=== PATIENT | female | born 1935 | race Caucasian/White ===

== ENCOUNTER 2021-03-20 15:20 | Inpatient (IN) | payer MEDICARE, OTHER ==
[~2021-03-20] VITALS: Ht 165.1 cm; Wt 54.7 kg
[~2021-03-20 15:20] MED LIST: MACROBID100 MG PO; PHENERGAN25 M1 PO
[2021-03-20 18:03] LABS: BASOPHIL 0.2 % (0-2); EOSINOPHIL 0.4 % (0-7); HCT 34.2 % (37.0-47.0); HGB 10.9 g/dl (12.5-16.0); LYMPHOCYTE 32.7 % (15-48); MCH 31.4 pg (25.0-31.0); MCHC 31.9 g/dL (32.0-36.0); MCV 98.6 fL (78.0-100.0); MONOCYTE 15.5 % (0-12); MPV 9.8 fL (6.0-9.5); NEUTROPHIL 50.1 % (41-80); NRBC 0; PLT 195 K/uL (150-400); RBC 3.47 M/uL (4.20-5.40); RDW 13.6 % (11.5-14.0); WBC 5.6 K/uL (4.0-10.5)
[2021-03-20 18:12] LABS: ALBUMIN 3.7 g/dL (3.4-5.0); BILIRUBIN - TOTAL 0.3 mg/dL (0.2-1.0); C-REACTIVE PROTEIN 1.8 mg/dL (<=0.90); GLOBULIN (CALCULATION) 4.6 g/dL; POTASSIUM 3.8 mmol/L (3.5-5.1); TOTAL PROTEIN 8.3 g/dL (6.4-8.2)
[2021-03-20 18:18] LABS: LACTIC ACID 1.2 mmol/L (0.4-1.9)
[2021-03-21 06:15] LABS: BASOPHIL 0.2 % (0-2); HCT 31.2 % (37.0-47.0); HGB 9.9 g/dl (12.5-16.0); LYMPHOCYTE 31.3 % (15-48); MCH 31.3 pg (25.0-31.0); MCHC 31.7 g/dL (32.0-36.0); MCV 98.7 fL (78.0-100.0); MONOCYTE 18.2 % (0-12); MPV 9.2 fL (6.0-9.5); NEUTROPHIL 48.8 % (41-80); NRBC 0; PLT 147 K/uL (150-400); RBC 3.16 M/uL (4.20-5.40); RDW 13.5 % (11.5-14.0); WBC 4.2 K/uL (4.0-10.5)
[2021-03-21 06:36] LABS: BILIRUBIN - TOTAL 0.3 mg/dL (0.2-1.0); BUN/CREAT RATIO (CALC) 19.2 RATIO; CREATININE 1.04 mg/dL (0.51-0.95); GLOBULIN (CALCULATION) 3.9 g/dL; POTASSIUM 3.9 mmol/L (3.5-5.1); TOTAL PROTEIN 6.9 g/dL (6.4-8.2)
[2021-03-21 13:28] LABS: IRON % SATURATION 15.3 %SAT (20-50)
[2021-03-21 13:55] LABS: FOLIC ACID (SERUM) 19.8 ng/mL (8.6-58.9)
[2021-03-22 06:23] LABS: BASOPHIL 0.2 % (0-2); EOSINOPHIL 0.7 % (0-7); HCT 30.7 % (37.0-47.0); HGB 9.9 g/dl (12.5-16.0); LYMPHOCYTE 38.8 % (15-48); MCH 31.3 pg (25.0-31.0); MCHC 32.2 g/dL (32.0-36.0); MCV 97.2 fL (78.0-100.0); MONOCYTE 17.7 % (0-12); MPV 9.9 fL (6.0-9.5); NEUTROPHIL 42.1 % (41-80); NRBC 0; PLT 161 K/uL (150-400); RBC 3.16 M/uL (4.20-5.40); RDW 13.3 % (11.5-14.0); WBC 4.2 K/uL (4.0-10.5)
[2021-03-22 06:48] LABS: BUN/CREAT RATIO (CALC) 17.9 RATIO; CREATININE 0.95 mg/dL (0.51-0.95); POTASSIUM 4.6 mmol/L (3.5-5.1)
--- NOTE | 2021-03-22 10:13 | NUR ---
03/22/21 is recommending 24 hour supervision due to cogntive deficits. These recommendations were relayed to Demetria Nava, Daughter, (Note: Howie Condon, daughter, , could not be reached by telephone). Ms. Nava reports a grandson currently stays in the home 3 nights per week. She reports the family to be able to provide 24 hour care. Today, [place] Field Service Consultant requested for this social insurance adviser to call Ms. Condon. - Ms. Condon was reached by telephone. Ms. Condon states that they are not able to provide 24 hour care. Options of Assisted Living, sitter services, NH placement were discussed. Ms. Condon is interested in NH placement in [facility] or [facility].
--- NOTE | 2021-03-22 14:17 | NUR ---
S/W [facility] REGARDING HOME MEDICATION LIST AND LAST OFFICE NOTE. SKETCH ARTIST STATED THAT THEY SWITCHED OVER TO A NEW COMPUTER SYSTEM BUT WILL TRY TO ACCESS OLD SYSTEM TO GET INFORMATION AND WILL FAX TO [phone][address] DR CARVAJAL NOTIFIED
--- NOTE | 2021-03-22 15:01 | NUR ---
03/22/21 Family was educated to the guardianship application process.
--- NOTE | 2021-03-22 16:59 | NUR ---
03/22/21 [facility] has accept patient pending insurance.
--- NOTE | 2021-03-22 17:38 | NUR ---
1730 MIDLINE ORDERED FOR IV VANCOMYCIN. PROCEDURE EXPLAINED TO PT, PT UNDERSTAND SOME OF THE EXPLANATION.PT PREPPED AND DRAPED IN STERILE FASHION. THE PT'S LEFT UPPER ARM BAISILIC VEIN WAS VISUALIZED USING THE SITE RITE 6 US MACHINE. THE AREA WAS NUMBED WITH 1% LIDOCAINE. A 21 GAUGE GUIDE NEEDLE WAS USED. GOOD BLOOD RETURN WAS NOTED. THE GUIDE WIRE THREADED EASILY. THE NEEDLE WAS REMOVED AND THE MIDLINE CATHETER WAS PLACED OVER THE WIRE.THE WIRE AND SHEATH WERE REMOVED. GOOD BLOOD RETURN WAS NOTED. A CONNECTOR WAS FLUSHED AND PLACED OVER THE END OF THE CATHETER. A STAT LOCK WAS PLACED ON THE CATHETER AND A BIOPATCH WAS PLACED ON TOP OF THE INSERTION SITE. A STERILE TEGADERM WAS PLACED OVER THE MIDLINE CATHETER. GOOD FOR 29 DAYS. THIS IS NOT A CENTRAL LINE. REPORT WAS GIVEN TO VINAY OLSEN ON MED/SURG. THE PATIENT'S BED WAS RETURNED TO THE LOWEST POSITION, SR X 3 WERE UP. THE BED ALARM WAS ON, CALL LIGHT WITHIN REACH. PT TOLERATED THE PROCEDURE WELL.
--- NOTE | 2021-03-24 16:34 | NUR ---
03/24/21 [facility] has accepted Ms. Smiley for admission on 03/25/21. Her daughter, Howie Condon, , will provide transportation. Please call report to: [phone] option #1 and ask for Melissa. Fax DS to: [phone]. Report given to MS VINAY Jennings and Dr. Garcia.
--- NOTE | 2021-03-25 11:01 | NUR ---
DR BATISTA AT BEDSIDE TO PLACE PESSARY, PATIENT REFUSED. DR CARVAJAL MADE AWARE, PATIENT WILL HAVE TO FOLLOW UP OUTPATIENT TO GET PESSARY PLACED
--- NOTE | 2021-03-25 13:01 | NUR ---
03/25/21 Ms. Howie Condon, daughter, , requested for her mother to be transported to [place] via another route than her driving her mother. Ms. Condon was informed that patient does not meet criteria for EMS. The ABN was explained.
[2021-03-25] MEDS ORDERED: BACITRACIN1 EACH TOP (13:19)
[2021-03-25] MEDS ORDERED: VITAMIN B-121000 MC1 PO (13:19)
[2021-03-25] MEDS ORDERED: POLY-IRON150 MG PO (13:19)
[2021-03-25] MEDS ORDERED: ACETAMINOPHEN325 MG PO (13:19)
[2021-03-25] MEDS ORDERED: LACTOBACILLUS1 EACH PO (13:19)
[2021-03-25] MEDS ORDERED: HEPARIN 3010 UNIT/1 IV (13:19)
--- NOTE | 2021-03-25 17:34 | NUR ---
1500 PATIENT'S DAUGHTER, MEENAKSHI TORRES, WILL LIKE TO BE CONSULTED ON ALL DECISIONS REGARDING PATIENTS CARE.
--- NOTE | 2021-03-25 17:54 | NUR ---
1530 S/W PATIENTS DAUGHTER, ASHIA, VIA TELEPHONE REGADING PATIENTS D/C. 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 1750 THIS RN CALLED ASHIA REQUESTING CALLBACK ABOUT PATIENTS TRANSPORTATION, MESSAGE LEFT.
--- NOTE | 2021-03-25 18:13 | NUR ---
1810 NOTIFIED BY ED STAFF THAT PATIENTS RIDE IN CURRENTLY IN ED
--- NOTE | 2021-03-25 20:40 | NUR ---
2039 SPOKE WITH PT'S DAUGHTER MS. MOORE. SHE STATES HER SON WAS IN ACCIDENT AND SHE NO LONGER HAS TRANSPORT FOR PT TO [facility]. NOTIFED PRACTICE OR STUDENT TEACHER AND Kennedy GEORGE APRN OF TRANSPORTATION SITUATION.
--- NOTE | 2021-03-25 20:54 | NUR ---
215 SPOKE WITH PT'S DAUGHTER MS. MOORE. SHE HAS NO WAY TO TRANSPORT PT TO [facility]. SHE STATED TO CALL PT'S OTHER DAUGHTER MISAEL TO TRANSPORT PT TOMORROW.
--- NOTE | 2021-03-25 21:06 | NUR ---
2100 SPOKE WITH PT'S OTHER DAUGHTER MISAEL STATON. SHE STATED SHE IS CONCERNED TO TRANSPORT HER MOTHER TO [facility] BECAUSE OF PT'S DEMENTIA. SHE STATED CONCERNS OVER MS. ALBERTO'S WILLINGNESS TO LEAVE HER CAR AND GO TO FACILITY. PILAR ROLLINS UPDATED REGARDING SITUATION.
== END 2021-03-26 11:50 | DRG 602 ==
LOC: FER 15:20 → FMS 19:42
PROVIDERS: Emergency Medicine; Internal Medicine; Nurse Practitioner; ADMIT Internal Medicine
PROC: 05HY33Z Insertion of Infusion Device into Upper Vein, Percutaneous Approach (ICD-10-PCS; principal; 2021-03-22)
DX: L03.115 Cellulitis of right lower limb (principal); L89.323 Pressure ulcer of left buttock, stage 3; L89.313 Pressure ulcer of right buttock, stage 3; N81.4 Uterovaginal prolapse, unspecified; D50.9 Iron deficiency anemia, unspecified; D51.9 Vitamin B12 deficiency anemia, unspecified; Z20.822 Contact with and (suspected) exposure to COVID-19; F03.90 Unspecified dementia, unspecified severity, without behavioral disturbance, psychotic disturbance, mood disturbance, and anxiety; N18.30 Chronic kidney disease, stage 3 unspecified; L97.519 Non-pressure chronic ulcer of other part of right foot with unspecified severity; M85.80 Other specified disorders of bone density and structure, unspecified site; S91.301A Unspecified open wound, right foot, initial encounter; Z96.642 Presence of left artificial hip joint; Z96.651 Presence of right artificial knee joint; Z85.3 Personal history of malignant neoplasm of breast; Z92.21 Personal history of antineoplastic chemotherapy; Z92.3 Personal history of irradiation; Z98.890 Other specified postprocedural states; Z91.041 Radiographic dye allergy status; X58.XXXA Exposure to other specified factors, initial encounter
CPT/HCPCS: 36415; 73630; 73718; 80048; 80053; 80202; 82607; 82746; 83036; 83540; 83550; 83605; 84145; 85025; 86140; 87040; 92523; 97161; 97166; 97535; C1751; J1642; J2543; J2916; J3370; J3420; J7050; U0002